=== PATIENT | male | born 1965 ===

== ENCOUNTER → 2022-10-10 12:13 | Outpatient (BNVA) | payer OTHER, SELFPAY | PROVIDERS: PCP Family Medicine; Visit Provider Family Medicine | DX: Z02.4 Encounter for examination for driving license (principal) | CPT/HCPCS: 81000 ==

== ENCOUNTER 2023-07-19 14:44 | Emergency (ER) | payer OTHER, SELFPAY ==
[2023-07-19 14:49] VITALS: BP 182/94; RESP 16; TEMP 36.7; O2SAT 95
--- NOTE | 2023-07-19 16:27 | CTR_ITS ---
PROCEDURE INFORMATION: Exam: CT Abdomen And Pelvis With Contrast Exam date and time: 07/19/2023 5:54 PM Age: 57 years old Clinical indication: Abdominal pain; Localized; Right upper quadrant (ruq); Patient HX: Ruq per patient there is a visible palaable lump just below ribs. Patient says he thinks he has a hernia. He said he was pulling on something really hard two days ago when the injury occured. ; Additional info: Abdominal pain, right lower quadrant, pain on abdominal wall TECHNIQUE: Imaging protocol: Computed tomography of the abdomen and pelvis with contrast. Radiation optimization: All CT scans at this facility use at least one of these dose optimization techniques: automated exposure control; mA and/or kV adjustment per patient size (includes targeted exams where dose is matched to clinical indication); or iterative reconstruction. Contrast material: OMNI 350; Contrast volume: 100 ml; Contrast route: INTRAVENOUS (IV); COMPARISON: No relevant prior studies available. RADIATION DOSE METRICS: Total DLP (mGy-cm): 608 FINDINGS: Lungs: There is a calcified granuloma in the right lower lobe. There is subsegmental atelectasis in the lung bases. Diaphragm: There is a 13 mm water attenuation cyst in the posterior aspect of the right hemidiaphragm visible on sagittal series 6, image 60. Liver: The liver is normal. Gallbladder and bile ducts: The gallbladder is normal. There is no biliary dilation. Pancreas: There is mild atrophy of the pancreas. Spleen: The spleen is mildly enlarged. Adrenal glands: The adrenal glands are unremarkable. Kidneys and ureters: The kidneys are unremarkable. No hydronephrosis or stones. No ureteral dilation. Stomach and bowel: The stomach is nondistended, limiting assessment of wall thickness. The small bowel is nondilated. Appendix: The appendix is normal. Intraperitoneal space: There is no free air or significant intraperitoneal free fluid. Vasculature: There is mild aortic atherosclerotic disease. The portal, splenic and superior mesenteric veins are patent. Lymph nodes: There is no lymphadenopathy in the retroperitoneum, mesentery, pelvis or inguinal regions. Urinary bladder: There is mild diffuse bladder wall thickening suggesting muscular hypertrophy. Reproductive: The prostate and seminal vesicles are unremarkable. Bones/joints: There is mild degenerative disease in the lumbar spine. The pelvis and hips are unremarkable. No visible rib fracture. Soft tissues: There is a tiny fat containing umbilical hernia. There is a tiny fat containing left inguinal hernia. CT/CT abdomen pelvis w con* [id number] IMPRESSION: 1. No acute findings. No findings to explain the patient's pain. No visible rib fracture. No clinically significant hernia. Tiny fat containing umbilical and left inguinal hernias are present. 2. Incidental findings above.
--- NOTE | 2023-07-19 16:28 | ED_ITS ---
HPI - Abdominal Pain 2 General: Chief Complaint: Abdominal Pain Stated Complaint: Right side pain Time Seen by Provider: 07/19/23 16:25 History of Present Illness: Patient says he was at work yesterday and was pulling on something heavy and afterwards he developed pain in his right side. He went to [facility] today and apparently they thought he might have a hernia on his right lower lateral abdominal wall. I do not palpate this at this time. He reports that they told him to come to the emergency room for CT scan. No nausea or vomiting. No dysuria. No fevers. No cough. No shortness of breath. Review of Systems 2 Narrative: Constitutional symptoms: Negative except as documented in HPI. Skin symptoms: Negative except as documented in HPI. Eye symptoms: Negative except as documented in HPI. ENMT symptoms: Negative except as documented in HPI. Respiratory symptoms: Negative except as documented in HPI. Cardiovascular symptoms: Negative except as documented in HPI. Gastrointestinal symptoms: Negative except as documented in HPI. Genitourinary symptoms: Negative except as documented in HPI. Musculoskeletal symptoms: Negative except as documented in HPI. Neurologic symptoms: Negative except as documented in HPI. Psychiatric symptoms: Negative except as documented in HPI. Endocrine symptoms: Negative except as documented in HPI. PFSH ED 2 PFSH: Social History Smoking and tobacco/nicotine status: current every day tobacco/nicotine user Alcohol intake: current Substance/Drug Use: never Physical Exam 2 Narrative: EXAM NARRATIVE: General: Alert, no acute distress. Skin: Warm, dry. Head: Normocephalic, atraumatic. Neck: Supple, trachea midline. Eye: Extraocular movements are intact. Ears, nose, mouth and throat: mucosa moist. Cardiovascular: Regular, Normal peripheral perfusion. Respiratory: Lungs are clear to auscultation, respirations are non-labored, breath sounds are equal, Symmetrical chest wall expansion. Gastrointestinal: Soft, Nontender, Non distended, Normal bowel sounds. Musculoskeletal: Normal ROM, no deformity. Neurological: Alert and oriented, No focal neurological deficit observed. Psychiatric: Cooperative, appropriate mood & affect. Course 2 Vital Signs: Vital signs: Vital Signs Temperature 98.1 F 07/19/23 14:49 Pulse Rate 77 07/19/23 18:06 Respiratory Rate 17 07/19/23 16:46 Blood Pressure 141/86 05/16/24 17:30 Pulse Oximetry 97 07/19/23 18:06 Oxygen Delivery Me thod Room Air 07/19/23 18:06 MDM - Abdominal Pain Medical Decision Making Medical decision making: Differential diagnosis including but not limited to and based on the above HPI, review of systems and physical exam: Patient with right lower abdominal pain. Basic lab work and CT were ordered. Orders placed to evaluate differential diagnosis based on the above differential, HPI and physical exam CT abdomen pelvis with contrast shows no acute abnormalities. This was reviewed and interpreted by myself the emergency room physician. I also reviewed the radiology report. Lab Review: Laboratory results were reviewed and interpreted by myself the emergency room physician. Lab work was unremarkable. No leukocytosis. No anemia. No renal failure. I reviewed the patient's medical record. Reexamination: Patient remained stable. No altered mental status. Pain is under control. No increased work of breathing. Assessment and plan: Abdominal wall pain - Discharged home - Discussed plan with patient. Answered any questions. - Evaluation and treatment of this problem were appropriate in the emergency setting. Lab Data 07/19/23 17:00 07/19/23 17:00 Labs/Radiology: Radiology Impressions Abdomen/Pelvis CT 07/19/23 16:27 IMPRESSION: 1. No acute findings. No findings to explain the patient's pain. No visible rib fracture. No clinically significant hernia. Tiny fat containing umbilical and left inguinal hernias are present. 2. Incidental findings above. Laboratory Results WBC 8.58 10^3/uL (3.29-11.43) 07/19/23 17:00 RBC 4.98 10^6/uL (3.85-5.65) 07/19/23 17:00 Hgb 15.00 g/dL (11.27-16.99) 07/19/23 17:00 Hct 44.2 % (37-53) 07/19/23 17:00 MCV 88.8 fl (82-101) 07/19/23 17:00 MCH 30.1 pg (27-33) 07/19/23 17:00 MCHC 33.9 g/dL (30-55) 07/19/23 17:00 RDW 13.1 % (12.1-15.1) 07/19/23 17:00 Plt Count 235 10^3/cmm (157-399) 07/19/23 17:00 MPV 8.9 fL (7.4-10.4) 07/19/23 17:00 Neut % (Auto) 60.5 % 07/19/23 17:00 Lymph % (Auto) 22.6 % 07/19/23 17:00 Kaufman % (Auto) 10.3 % 07/19/23 17:00 Eos % (Auto) 5.4 % 07/19/23 17:00 Baso % (Auto) 1.0 % 07/19/23 17:00 Neut # (Auto) 5.19 10^3/uL (1.8-7.7) 07/19/23 17:00 Lymph # (Auto) 1.9 10^3/uL (0.8-4.8) 07/19/23 17:00 Kaufman # (Auto) 0.9 10^3/uL (0.2-0.9) 07/19/23 17:00 Eos # (Auto) 0.5 10^3/uL (0.0-0.8) 07/19/23 17:00 Baso # (Auto) 0.1 10^3/uL (0.0-0.1) 07/19/23 17:00 Nucleated RBC % (auto) 0 % 07/19/23 17:00 Nucleated RBCs # 0.0 /100WBC 07/19/23 17:00 Sodium 140 mmol/L (136-145) 07/19/23 17:00 Potassium 4.2 mmol/L (3.5-5.1) 07/19/23 17:00 Chloride 105 mmol/L (98-107) 07/19/23 17:00 Carbon Dioxide 26 mmol/L (22-29) 07/19/23 17:00 Anion Gap 13.2 (5-19) 07/19/23 17:00 BUN 17 mg/dL (6-20) 07/19/23 17:00 Creatinine 0.9 mg/dL (0.7-1.2) 07/19/23 17:00 GFR Calculation 86.4 mL/min (90-130) L 07/19/23 17:00 Glucose 108 mg/dL (65-115) 07/19/23 17:00 Calculated Osmolality 292 mOsm/kg (285-295) 07/19/23 17:00 Calcium 8.7 mg/dL (8.5-10.5) 07/19/23 17:00 Total Bilirubin 0.2 mg/dL (0.15-1.2) 07/19/23 17:00 AST 22 U/L (0-40) 07/19/23 17:00 ALT 25 U/L (0-41) 07/19/23 17:00 Alkaline Phosphatase 77 U/L (40-130) 07/19/23 17:00 Total Protein 7.0 g/dL (6.6-8.7) 07/19/23 17:00 Albumin 4.3 g/dL (3.5-5.2) 07/19/23 17:00 Globulin 2.7 g/dL (1.3-4.6) 07/19/23 17:00 All radiology interpretation(s) finalized by discharge Discharge Plan Discharge Patient Disposition: Home Clinical Impression: Abdominal wall pain Condition: Stable Prescriptions: No Action Ciprodex 0.3-0.1 % drops,suspension 4 drop EAR-BOTH BID 7 Days Qty: 7.5 0RF Discharge Orders: Discharge ED (Routine); Ordered 07/19/23 Ordered By: Tresa Ludwig Discharge Diet: Usual diet Discharge Activity: Increase activity as tolerated Patient Instructions: Abdominal Pain (ED), Pain Management Activity Restrictions/Additional Instructions: Thank you for choosing [facility] for your healthcare needs today. Please realize this is an emergency room and that we are providing you with a medical screening exam and this may not be complete and all inclusive of all the testing and or work up that you may need to determine your ailment or severity of your illness. You have been screened and evaluated and felt safe for discharge. Health conditions do change or evolve sometimes and as such it is important that you follow up with your Primary Doctor to be re checked, 3-5 days is a general good time frame for follow up. You are always welcome to return to the ED for re assessment if your symptoms are worsening or you have new concerns Coding Level of Care Code ED Worm Sorter for Kamron Levy
[2023-07-19 16:46] VITALS: BP 154/98; PULSE 83; RESP 17; O2SAT 95
[2023-07-19 17:00] VITALS: BP 123/87; PULSE 78; O2SAT 97
[2023-07-19 17:07] LABS: Basophils # 0.1 10^3/uL (0.0-0.1); Eosinophils # 0.5 10^3/uL (0.0-0.8); Eosinophils % 5.4 %; Hematocrit 44.2 % (37-53); Lymphocytes # 1.9 10^3/uL (0.8-4.8); Lymphocytes % 22.6 %; Mean Corpuscular HGB Conc 33.9 g/dL (30-55); Mean Corpuscular Hemoglobin 30.1 pg (27-33); Mean Corpuscular Volume 88.8 fl (82-101); Mean Platelet Volume 8.9 fL (7.4-10.4); Monocytes # 0.9 10^3/uL (0.2-0.9); Monocytes % 10.3 %; Neutrophils # 5.19 10^3/uL (1.8-7.7); Neutrophils % 60.5 %; Nucleated Red Blood Cells % 0 %; Platelet Count 235 10^3/cmm (157-399); Red Blood Count 4.98 10^6/uL (3.85-5.65); Red Cell Distribution Width 13.1 % (12.1-15.1); White Blood Count 8.58 10^3/uL (3.29-11.43)
[2023-07-19 17:26] LABS: Alanine Aminotransferase 25 U/L (0-41); Albumin Level 4.3 g/dL (3.5-5.2); Alkaline Phosphatase 77 U/L (40-130); Anion Gap 13.2 (5-19); Aspartate Amino Transferase 22 U/L (0-40); Blood Urea Nitrogen 17 mg/dL (6-20); Calcium 8.7 mg/dL (8.5-10.5); Carbon Dioxide 26 mmol/L (22-29); Chloride 105 mmol/L (98-107); Globulin 2.7 g/dL (1.3-4.6); Glomerular Filtration Rate 86.4 mL/min (90-130); Glucose 108 mg/dL (65-115); Osmolality Calculated 292 mOsm/kg (285-295); Potassium 4.2 mmol/L (3.5-5.1); Sodium 140 mmol/L (136-145); Total Bilirubin 0.2 mg/dL (0.15-1.2)
[2023-07-19 17:30] VITALS: BP 141/86; PULSE 75; O2SAT 97
[2023-07-19] MEDS: iohexol 350 mg/mL 500 mL Btl (per mL) IV (17:56)
[2023-07-19 18:06] VITALS: PULSE 77; O2SAT 97
== END 2023-07-19 18:32 | disposition home or self-care (01) ==
PROVIDERS: Emergency Provider Emergency Medicine
DX: R10.9 Unspecified abdominal pain (principal)
CPT/HCPCS: 36415; 74177; 80053; 85025; 99285; Q9967

== ENCOUNTER 2023-08-26 17:47 | Emergency (ER) | payer OTHER, SELFPAY ==
[2023-08-26 17:56] VITALS: BP 141/79; PULSE 102; RESP 17; TEMP 37.7; O2SAT 100; BMI 25.0
--- NOTE | 2023-08-26 18:02 | W.ED.HA ---
HPI - Headache General: Chief Complaint: Headache Stated Complaint: PEÑA, dehydration, confusion, general pain Time Seen by Provider: 08/26/23 17:59 History of Present Illness: 57-year-old male patient comes in today with possible heat exhaustion. Patient endorses that on Sunday he was unloading a truck and became overheated. Since then patient has been drinking lots of fluids but continues to have weakness and a headache. Patient does endorse nicotine, THC, EtOH, and methamphetamine use. Patient states his last methamphetamine use was 2 weeks ago. Patient denies any surgeries except a tonsillectomy. Patient reports no other chronic medical problems. Patient appears mildly unwell but not toxic. Patient appears in mild to moderate pain. Review of Systems General: Reports: 10 or more systems reviewed and unremarkable except in HPI and below Neuro: Reports: headache(s) PFS ED PFSH: Social History Smoking and tobacco/nicotine status: current every day tobacco/nicotine user Alcohol intake: current Substance/Drug Use: never Physical Exam Const: COMMON NORMALS: alert HENMT: COMMON NORMALS: normocephalic and Normal external nose present HEAD & SCALP: normocephalic NOSE: Normal external nose present MOUTH: Normal oral and palatal mucosa present THROAT: posterior oropharynx normal Neck/C-Spine: COMMON NORMALS: full ROM Resp: COMMON NORMALS: normal respiratory effort and clear to auscultation bilaterally AUSCULTATION: clear to auscultation bilaterally Cardio: COMMON NORMALS: regular rate and regular rhythm RATE: regular rate RHYTHM: regular rhythm GI: COMMON NORMALS: Soft to palpation and non-tender PALPATION: Yes Soft to palpation Back/Pelvis: COMMON NORMALS: thoracic and lumbar spine normal to inspection Extremity: COMMON NORMALS: no pedal edema Neuro: SENSORIUM/ORIENTATION: Yes alert Skin: COMMON NORMALS: turgor normal GENERAL SKIN EXAM: turgor normal Course Vital Signs: Vital signs: Vital Signs Temperature 99.8 F H 08/26/23 17:56 Pulse Rate 102 H 08/26/23 17:56 Respiratory Rate 16 08/26/23 20:14 Blood Pressure 135/83 08/26/23 20:14 Pulse Oximetry 100 08/26/23 17:56 Oxygen Delivery Me thod Room Air 08/26/23 17:56 MDM - Headache Medical Decision Making 57-year-old male patient comes in today with headache and exhaustion since becoming overheated on Sunday. Patient appears nontoxic. Patient appears in no acute distress. Respirations are even lungs are clear to auscultation. Abdomen soft with some mild enlargement of the liver noted on palpation. Patient did report a history of hepatitis. Vital signs are normal except for some mild elevation in pulse and a temperature of 99.8. Differential diagnosis includes heat exhaustion, rhabdomyolysis, hyponatremia, dehydration. Patient was given 2 L of IV fluids with some improvement of symptoms. Patient reported that his headache had resolved but prior to discharge he did complain of his headache again. CT scan of the head noted no signs of intracranial bleeding or mass. Patient refused further examination and wished to be discharged. Encourage fluids rest and use acetaminophen or ibuprofen for pain. Patient reported understanding agreed to plan. Lab Data 08/26/23 18:44 08/26/23 18:[address] 08/26/23 18:08 IMPRESSION: 1. No acute intracranial abnormality. 2. Partial opacification of the right mastoid air cells which can be seen the setting mastoiditis. Laboratory Results WBC 3.37 10^3/uL (3.29-11.43) 08/26/23 18:44 RBC 6.09 10^6/uL (3.85-5.65) H 08/26/23 18:44 Hgb 18.10 g/dL (11.27-16.99) H 08/26/23 18:44 Hct 52.6 % (37-53) 08/26/23 18:44 MCV 86.4 fl (82-101) 08/26/23 18:44 MCH 29.7 pg (27-33) 08/26/23 18:44 MCHC 34.4 g/dL (30-55) 08/26/23 18:44 RDW 13.0 % (12.1-15.1) 08/26/23 18:44 Plt Count 96 10^3/cmm (157-399) L 08/26/23 18:44 MPV 9.4 fL (7.4-10.4) 08/26/23 18:44 Neut % (Auto) 82.8 % 08/26/23 18:44 Lymph % (Auto) 8.9 % 08/26/23 18:44 Ware % (Auto) 7.1 % 08/26/23 18:44 Eos % (Auto) 0.0 % 08/26/23 18:44 Baso % (Auto) 0.9 % 08/26/23 18:44 Neut # (Auto) 2.79 10^3/uL (1.8-7.7) 08/26/23 18:44 Lymph # (Auto) 0.3 10^3/uL (0.8-4.8) L 08/26/23 18:44 Ware # (Auto) 0.2 10^3/uL (0.2-0.9) 08/26/23 18:44 Eos # (Auto) 0.0 10^3/uL (0.0-0.8) 08/26/23 18:44 Baso # (Auto) 0.0 10^3/uL (0.0-0.1) 08/26/23 18:44 Nucleated RBC % (auto) 0 % 08/26/23 18:44 Nucleated RBCs # 0.0 /100WBC 08/26/23 18:44 Sodium 133 mmol/L (136-145) L 08/26/23 18:44 Potassium 4.7 mmol/L (3.5-5.1) 08/26/23 18:44 Chloride 96 mmol/L (98-107) L 08/26/23 18:44 Carbon Dioxide 23 mmol/L (22-29) 08/26/23 18:44 Anion Gap 18.7 (5-19) 08/26/23 18:44 BUN 22 mg/dL (6-20) H 08/26/23 18:44 Creatinine 1.1 mg/dL (0.7-1.2) 08/26/23 18:44 GFR Calculation 68.5 mL/min (90-130) L 08/26/23 18:44 Glucose 94 mg/dL (65-115) 08/26/23 18:44 Calculated Osmolality 279 mOsm/kg (285-295) L 08/26/23 18:44 Calcium 10.0 mg/dL (8.5-10.5) 08/26/23 18:44 Total Bilirubin 0.8 mg/dL (0.15-1.2) 08/26/23 18:44 AST 60 U/L (0-40) H 08/26/23 18:44 ALT 55 U/L (0-41) H 08/26/23 18:44 Alkaline Phosphatase 118 U/L (40-130) 08/26/23 18:44 Creatine Kinase 109 U/L (39-308) 08/26/23 18:44 Total Protein 8.7 g/dL (6.6-8.7) 08/26/23 18:44 Albumin 4.9 g/dL (3.5-5.2) 08/26/23 18:44 Globulin 3.8 g/dL (1.3-4.6) 08/26/23 18:44 Ethyl Alcohol < 10 mg/dL (0-10) 08/26/23 18:44 All radiology interpretation(s) finalized by discharge Discharge Plan Discharge Patient Disposition: Home Clinical Impression: Dehydration Headache Qualifiers: Headache type: unspecified Headache chronicity pattern: acute headache Intractability: not intractable Qualified Code(s): R51.9 - Headache, unspecified Condition: Stable Prescriptions: No Action Ciprodex 0.3-0.1 % drops,suspension 4 drop EAR-BOTH BID 7 Days Qty: 7.5 0RF Discharge Orders: Discharge ED (Routine); Ordered 08/26/23 Ordered By: Ruperto Ortega Patient Instructions: Heatstroke (ED) Activity Restrictions/Additional Instructions: Avoid the heat of the day. Drink plenty of water. Follow-up with primary care. If sweating profusely make sure to drink Gatorade with your water. Coding Level of Care Code ED [employer] Operations Engineer for Kamron Levy
--- NOTE | 2023-08-26 18:08 | CTR_ITS ---
PROCEDURE INFORMATION: Exam: CT Head Without Contrast Exam date and time: 08/26/2023 7:08 PM Age: 57 years old Clinical indication: Pain; Headache; Patient HX: C/O PEÑA x 3 days TECHNIQUE: Imaging protocol: Computed tomography of the head without contrast. Radiation optimization: All CT scans at this facility use at least one of these dose optimization techniques: automated exposure control; mA and/or kV adjustment per patient size (includes targeted exams where dose is matched to clinical indication); or iterative reconstruction. COMPARISON: No relevant prior studies available. RADIATION DOSE METRICS: Total DLP (mGy-cm): 1046.28 FINDINGS: Brain: No acute intracranial abnormality. Cerebral ventricles: No ventriculomegaly. Paranasal sinuses: Visualized sinuses are unremarkable. No fluid levels. Mastoid air cells: Partial opacification of the right mastoid air cells which can be seen the setting mastoiditis. Bones: Unremarkable. No acute fracture. Soft tissues: Unremarkable. CT/CT head wo con* [id number] IMPRESSION: 1. No acute intracranial abnormality. 2. Partial opacification of the right mastoid air cells which can be seen the setting mastoiditis.
[2023-08-26] MEDS: sodium chloride 0.9% 1,000 ML 999 ML IV ×2 (18:54→20:10)
[2023-08-26] MEDS: metoclopramide 5 mg/mL SDV 2 mL 10 MG IVP (18:56)
[2023-08-26] MEDS: diphenhydrAMINE 50 mg/mL SDV 1mL 25 MG IVP (18:56)
[2023-08-26 18:57] LABS: Basophils % 0.9 %; Hematocrit 52.6 % (37-53); Lymphocytes # 0.3 10^3/uL (0.8-4.8); Lymphocytes % 8.9 %; Mean Corpuscular HGB Conc 34.4 g/dL (30-55); Mean Corpuscular Hemoglobin 29.7 pg (27-33); Mean Corpuscular Volume 86.4 fl (82-101); Mean Platelet Volume 9.4 fL (7.4-10.4); Monocytes # 0.2 10^3/uL (0.2-0.9); Monocytes % 7.1 %; Neutrophils # 2.79 10^3/uL (1.8-7.7); Neutrophils % 82.8 %; Nucleated Red Blood Cells % 0 %; Platelet Count 96 10^3/cmm (157-399); Red Blood Count 6.09 10^6/uL (3.85-5.65); White Blood Count 3.37 10^3/uL (3.29-11.43)
[2023-08-26 19:20] LABS: Alanine Aminotransferase 55 U/L (0-41); Albumin Level 4.9 g/dL (3.5-5.2); Alkaline Phosphatase 118 U/L (40-130); Anion Gap 18.7 (5-19); Aspartate Amino Transferase 60 U/L (0-40); Blood Urea Nitrogen 22 mg/dL (6-20); Carbon Dioxide 23 mmol/L (22-29); Chloride 96 mmol/L (98-107); Creatine Phosphokinase 109 U/L (39-308); Globulin 3.8 g/dL (1.3-4.6); Glomerular Filtration Rate 68.5 mL/min (90-130); Glucose 94 mg/dL (65-115); Osmolality Calculated 279 mOsm/kg (285-295); Potassium 4.7 mmol/L (3.5-5.1); Sodium 133 mmol/L (136-145); Total Bilirubin 0.8 mg/dL (0.15-1.2); Total Protein 8.7 g/dL (6.6-8.7)
[2023-08-26 19:22] LABS: Alcohol Level < 10 mg/dL (0-10)
[2023-08-26 20:14] VITALS: BP 135/83; RESP 16
[2023-08-26 20:50] VITALS: PULSE 98; RESP 18; O2SAT 96
== END 2023-08-26 20:49 | disposition home or self-care (01) ==
PROVIDERS: Emergency Provider Nurse Practitioner Family
DX: R51.9 Headache, unspecified (principal); E86.0 Dehydration; Z72.0 Tobacco use
CPT/HCPCS: 70450; 80053; 80307; 82550; 85025; 96361; 96374; 96375; 99285; J1200; J2765; J7030

== ENCOUNTER → 2024-12-02 15:17 | Outpatient (BNVA) | payer OTHER, SELFPAY | PROVIDERS: Visit Provider Dermatology | DX: L73.8 Other specified follicular disorders (principal); L92.3 Foreign body granuloma of the skin and subcutaneous tissue; D48.5 Neoplasm of uncertain behavior of skin | CPT/HCPCS: 11102; 99203 ==